=== PATIENT | female | born 1995 | race Two or more races ===

== ENCOUNTER 2020-05-28 18:52 | Emergency (ER) | payer MEDICAID ==
[~2020-05-28] VITALS: Ht 154.9 cm; Wt 91.7 kg
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
[2020-05-28 20:17] LABS: BACTERIA,URINE 0 /HPF (0-FEW); BILIRUBIN,URINE NEG (NEG); CLARITY,URINE CLEAR; COLOR,URINE YELLOW; GLUCOSE,URINE 500 mg/dL (NEG); NITRITE,URINE NEG (NEG); RBC,URINE RARE /HPF (0-2); SQUAMOUS EPITHELIAL CELL,UR MANY /LPF; UROBILINOGEN,URINE 0.2 mg/dL (0.2 mg/dL); WBC,URINE 0 /HPF (0-4)
[2020-05-28 20:48] LABS: BASO % 0 % (0-3); EOS % 1 % (0-3); HEMATOCRIT 38.4 % (36.0-47.0); HEMOGLOBIN 12.7 g/dL (12.0-15.5); LYMPH # 3.4 x10^3/uL (1.0-4.8); LYMPH % 39 % (24-48); MEAN CORPUSCULAR HEMOGLOBIN 32 pg (25-35); MEAN CORPUSCULAR HGB CONC 33 g/dL (31-37); MEAN CORPUSCULAR VOLUME 95 fL (79-100); MONO # 0.5 x10^3/uL (0.0-1.1); MONO % 6 % (0-9); NEUT # 4.8 x10^3uL (1.8-7.7); NEUT % 55 % (31-73); PLATELET COUNT 316 x10^3/uL (140-400); RED BLOOD COUNT 4.03 x10^6/uL (3.50-5.40); RED CELL DISTRIBUTION WIDTH 13.9 % (11.5-14.5); WHITE BLOOD COUNT 8.7 x10^3/uL (4.0-11.0)
[2020-05-28 21:00] LABS: ALBUMIN 3.8 g/dL (3.4-5.0); CALCIUM 9.1 mg/dL (8.5-10.1); GFR 154.3; POTASSIUM 3.5 mmol/L (3.5-5.1); TOTAL BILIRUBIN 0.2 mg/dL (0.2-1.0); TOTAL PROTEIN 7.5 g/dL (6.4-8.2)
[2020-05-28 21:03] LABS: CREATININE 0.5 mg/dL (0.6-1.0)
--- NOTE | 2020-05-28 21:28 | RAD ---
INDICATION: Reason: r/o left ovarian torsion; pelvic pain x 2 weeks; nausea / Spl. Instructions: / History: COMPARISON: None. TECHNIQUE: Grayscale and color ultrasound images uterus and adnexa. Transabdominal and transvaginal images obtained. Transvaginal images were needed to better visualize structures that were limited on transabdominal imaging. FINDINGS: Uterus: 78 x 41 x 34 mm. Endometrial Stripe: 3 mm. Right Ovary: 29 x 19 x 21 mm. Left Ovary: 27 x 24 x 19 mm. Vascular flow identified to bilateral ovaries. 11 mm hypoechoic lesion at the right ovary. At the cervical region there is a couple of cystic structures seen which could be from nabothian cysts. There is also some small echogenic foci which have a nonspecific appearance but can be seen with causes such as small calcifications. Small amount of fluid is seen within the lower uterine segment and cervical region IMPRESSION: * Vascular flow is seen to the bilateral ovaries with a hypoechoic small lesion at the right ovary which could be from a small complex follicle or small hemorrhagic cyst. * There is some nabothian cyst formation as well as some echogenic foci near the cervix which could be from small calcifications. Electronically signed by: Samuel Vital MD (05/28/2020 9:25 PM) [id number]
[2020-05-28 22:07] LABS: U PREG PATIENT NEGATIVE (NEG)
[2020-05-28 22:15] VITALS: BP 148/92
[2020-05-28] MEDS ORDERED: ONDANSETRON ODT 4 MG TAB.RAPDIS PO ONE (23:00)
== END 2020-05-28 22:30 | disposition home or self-care (01) ==
LOC: ER 18:52 → EEVIPCON 18:52 → ER 22:30
DX: G89.29 Other chronic pain (principal); R10.32 Left lower quadrant pain
CPT/HCPCS: 36415; 76830; 76856; 80053; 81001; 81025; 85025; 99284; Q0162

== ENCOUNTER 2020-05-30 12:59 | Emergency (ER) | payer MEDICAID ==
[~2020-05-30] VITALS: Ht 154.9 cm; Wt 91.7 kg
[2020-05-30 13:00] VITALS: BP 144/85
--- NOTE | 2020-05-30 14:08 | PHYS DOC ---
Past History Past Medical History: Diabetes, P.I.D. Past Surgical History: , Tonsillectomy, Other Additional Past Surgical Histo: nasal surgery for fracure of nose Alcohol Use: None Adult General Chief Complaint Chief Complaint: ABDOMINAL PAIN HPI HPI Patient is a 24-year-old female who was seen at our facility 2 days ago for abdominal pain. She presents today via EMS for fever. Per patient she felt hot and called EMS. In route, vitals from EMS were nonconcerning, patient was afebrile. On arrival, patient reported feeling fatigued with no other complaints. She has had intermittent abdominal pain ever since discharge at last visit. She has not followed up with outpatient physician at this time. No other concerning signs or symptoms, has been able to tolerate p.o. intake Review of Systems Review of Systems Fourteen body systems of review of systems have been reviewed. See HPI for pertinent positives and negative responses, other willard all other systems are negative, non-pertinent or non-contributory Allergies Allergies Allergies Uncoded Allergies Type Severity Reaction Last Updated Verified PEANUTS Allergy Unknown 05/28/20 Physical Exam Physical Exam Constitutional: Well developed, well nourished, no acute distress, non-toxic appearance. HENT: Normocephalic, atraumatic, bilateral external ears normal, oropharynx moist, no oral exudates, nose normal. Eyes: PERRLA, EOMI, conjunctiva normal, no discharge. Neck: Normal range of motion, no tenderness, supple, no stridor. Cardiovascular: Heart rate regular, sinus rhythm, no murmurs rubs or gallops Lungs & Thorax: Bilateral breath sounds clear to auscultation Abdomen: Bowel sounds normal, soft, no tenderness, no masses, no pulsatile masses. Nonsurgical abdomen, no peritoneal signs Skin: Warm, dry, no erythema, no rash. Back: No tenderness, no CVA tenderness. Extremities: No tenderness, no cyanosis, no clubbing, ROM intact, no edema. Neurologic: Alert and oriented X 3, grossly normal motor & sensory function, no focal deficits noted. Psychologic: Affect normal, judgement normal, mood normal. Current Patient Data Vital Signs Vital Signs Date Time Temp Pulse Resp B/P (MAP) Pulse Ox O2 Delivery O2 Flow Rate FiO2 05/30/20 13:00 98.6 88 16 144/85 (104) 98 Room Air EKG EKG [] Radiology/Procedures Radiology/Procedures [] Heart Score Risk Factors: Risk Factors: DM, Current or recent (<one month) smoker, HTN, HLP, family history of CAD, obesity. Risk Scores: Risk Factors: DM, Current or recent (<one month) smoker, HTN, HLP, family history of CAD, obesity. Course & Med Decision Making Course & Med Decision Making Nontoxic well-appearing patient seen on ER evaluation ABCs nonconcerning Comprehensive history and physical exam without any obvious surgical and/or emergent findings Reviewed recent comprehensive history performed by myself at this facility 2 days ago in addition to extensive work-up performed at outlying facility in vol[place] CT scan of abdomen that was negative performed within past 2 weeks Patient well-appearing, on phone entirety of examination during ER visit and in no acute distress, tolerating p.o. and requesting food. At this time I do not feel she requires repeat ER work-up. No further work-up indicated at this time Patient pending outpatient PCP follow-up this upcoming week, strict return precautions advised with good understanding, all questions and concerns addressed prior to ER departure in stable condition Martinez Disclaimer Dragleonardo Disclaimer This electronic medical record was generated, in whole or in part, using a voice recognition dictation system. Departure Departure: Impression: Primary Impression: Abdominal pain Disposition: 01 DC HOME SELF CARE/HOMELESS Condition: STABLE Referrals: PCPSAMRA (PCP) Patient Instructions: Abdominal Pain (Nonspecific) Additional Instructions: As discussed prior to ER departure, please use she to schedule outpatient follow-up with local primary care physician You would benefit from establishing with local primary care provider in addition to [facility] [employer]IP[employer] HELPER for continuity of care You were instructed on strict return precautions that should bring you back should they arise prior to your first outpatient visit ANGY TORRES DO May 30, 2020 14:08
== END 2020-05-30 14:15 | disposition home or self-care (01) ==
LOC: ER 12:59
DX: R10.9 Unspecified abdominal pain (principal); R53.83 Other fatigue; E11.9 Type 2 diabetes mellitus without complications; Z98.890 Other specified postprocedural states; Z91.010 Allergy to peanuts
CPT/HCPCS: 99283

== ENCOUNTER 2020-06-16 21:54 | Emergency (ER) | payer MEDICAID ==
[~2020-06-16] VITALS: Ht 154.9 cm; Wt 91.7 kg
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
[2020-06-16 22:52] LABS: BACTERIA,URINE 0 /HPF (0-FEW); BILIRUBIN,URINE NEG (NEG); CLARITY,URINE CLEAR; COLOR,URINE YELLOW; GLUCOSE,URINE >=1000 mg/dL (NEG); NITRITE,URINE NEG (NEG); RBC,URINE 0 /HPF (0-2); SQUAMOUS EPITHELIAL CELL,UR FEW /LPF; UROBILINOGEN,URINE 0.2 mg/dL (0.2 mg/dL); WBC,URINE RARE /HPF (0-4)
[2020-06-16 22:54] LABS: BASO % 0 % (0-3); EOS % 1 % (0-3); HEMATOCRIT 37.4 % (36.0-47.0); HEMOGLOBIN 12.2 g/dL (12.0-15.5); LYMPH % 42 % (24-48); MEAN CORPUSCULAR HEMOGLOBIN 32 pg (25-35); MEAN CORPUSCULAR HGB CONC 33 g/dL (31-37); MEAN CORPUSCULAR VOLUME 96 fL (79-100); MONO # 0.5 x10^3/uL (0.0-1.1); MONO % 7 % (0-9); NEUT # 3.5 x10^3uL (1.8-7.7); NEUT % 50 % (31-73); PLATELET COUNT 284 x10^3/uL (140-400); RED BLOOD COUNT 3.89 x10^6/uL (3.50-5.40); WHITE BLOOD COUNT 7.2 x10^3/uL (4.0-11.0)
[2020-06-16 22:57] LABS: BARBITURATES NEG (NEG); BENZODIAZEPINES NEG (NEG); CANNABINOIDS NEG (NEG); COCAINE NEG (NEG); METHADONE NEG (NEG); OPIATES NEG (NEG); PHENCYCLIDINE NEG (NEG)
[2020-06-16] MEDS ORDERED: IV NORMAL SALINE 1,000ML 1,000 ML IV SCH (23:00)
[2020-06-16 23:04] LABS: AMPHETAMINE/METHAMPHETAMINE NEG (NEG)
[2020-06-16 23:07] LABS: CREATININE 0.9 mg/dL (0.6-1.0); GFR 78.3; POTASSIUM 3.8 mmol/L (3.5-5.1)
[2020-06-16 23:12] LABS: ALBUMIN 3.4 g/dL (3.4-5.0); DIRECT BILIRUBIN 0.1 mg/dL (0.0-0.2); TOTAL BILIRUBIN 0.1 mg/dL (0.2-1.0); TOTAL PROTEIN 6.9 g/dL (6.4-8.2)
--- NOTE | 2020-06-17 00:13 | RAD ---
Study: CR ACUTE ABDOMEN SERIES Indication: Pain. Comparison: None. Findings: Unremarkable cardiomediastinal silhouette and anne. No confluent infiltrate, pleural effusion or pneumothorax. Gas is seen scattered throughout the small and large bowel. No pathologic dilatation or air-fluid level identified to suggest obstruction. Mild volume well-formed stool burden within the proximal colon. Gas is seen within the rectum. No free air under the diaphragm. Impression: 1. Nonobstructive bowel gas pattern. 2. No acute radiographic abnormality of the chest. Electronically signed by: GILBERTO WATSON MD (06/17/2020 12:10 AM) [id number]
[2020-06-17] MEDS ORDERED: IV NORMAL SALINE 1,000ML 1,000 ML IV ONE (01:00)
[2020-06-17] MEDS ORDERED: INSULIN REGULAR 100 UNIT/ML 3ML VIAL. IV ONE (01:00)
[2020-06-17 02:50] VITALS: BP 145/68
[2020-06-17 03:01] LABS: ACETAMIN < 2.0 mcg/mL (10-30); ETHANOL < 10 mg/dL (0-10); SALIC < 2.8 mg/dL (2.8-20.0)
[2020-06-17] MEDS ORDERED: METF1000 PO (03:12)
[2020-06-17 03:19] LABS: INFLUENZA A PATIENT NEGATIVE (NEGATIVE); INFLUENZA B PATIENT NEGATIVE (NEGATIVE)
--- NOTE | 2020-06-17 06:44 | EKG ---
[address] [address] Test Date: 2020-06-16 Test Time: 22:56:44 Pat Name: KAPIL YOUSIF Department: Room: Gender: F Receiving Room Clerk: : 1995 Requested By: SANDRO BALBUENA Order Number: [id number] Reading MD: Measurements Intervals Raymond Rate: 106 P: 27 WA: 168 QRS: 51 QRSD: 78 T: 0 QT: 324 QTc: 432 Interpretive Statements SINUS TACHYCARDIA OTHERWISE NORMAL ECG RI6.02 No previous ECG available for comparison
== END 2020-06-17 03:18 | disposition home or self-care (01) ==
LOC: ER 21:54
DX: E86.0 Dehydration (principal); R79.89 Other specified abnormal findings of blood chemistry; F41.9 Anxiety disorder, unspecified; F32.9 Major depressive disorder, single episode, unspecified; E11.9 Type 2 diabetes mellitus without complications; Z91.410 Personal history of adult physical and sexual abuse; F43.10 Post-traumatic stress disorder, unspecified; F17.210 Nicotine dependence, cigarettes, uncomplicated; Z91.010 Allergy to peanuts
CPT/HCPCS: 36415; 74022; 80048; 80076; 80307; 80329; 81001; 81025; 82150; 82550; 82947; 83605; 83690; 83735; 84443; 84484; 84702; 85025; 85379; 85610; 86705; 86709; 86803; 87040; 87070; 87340; 87804; 87880; 93005; 96361; 96374; 99285; G0480; J1815; J7030

== ENCOUNTER 2020-06-19 21:21 | Emergency (ER) | payer MEDICAID ==
[~2020-06-19] VITALS: Ht 154.9 cm; Wt 91.7 kg
[2020-06-19 21:21] VITALS: BP 155/82
[~2020-06-19 21:21] MED LIST: METF1000 PO
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
== END 2020-06-19 22:35 | disposition short-term general hospital (02) ==
LOC: EEVIPCON 21:21 → ER 21:21
DX: T76.21XA Adult sexual abuse, suspected, initial encounter (principal); M79.605 Pain in left leg; R10.9 Unspecified abdominal pain; E11.9 Type 2 diabetes mellitus without complications; F19.90 Other psychoactive substance use, unspecified, uncomplicated; F17.210 Nicotine dependence, cigarettes, uncomplicated; Z98.890 Other specified postprocedural states; Z91.010 Allergy to peanuts; X58.XXXA Exposure to other specified factors, initial encounter; Y93.9 Activity, unspecified; Y92.89 Other specified places as the place of occurrence of the external cause; Y99.8 Other external cause status
CPT/HCPCS: 99283; 99285